=== PATIENT | male | born 1970 | race Caucasian/White ===

== ENCOUNTER 2021-12-21 16:33 | Emergency (ER) | payer OTHER, SELFPAY ==
[2021-12-21] MEDS ORDERED: Boostrix 0.5 ML (Tdap) VIAL ONE (17:21)
[2021-12-21] MEDS ORDERED: Lidocaine 1% (PF) 30 ML VIAL ONE (17:21)
[2021-12-21] MEDS ORDERED: Bacitracin 1 PK ONE ×2 (17:21→18:53)
== END 2021-12-21 19:00 | disposition home or self-care (01) ==
LOC: CSHERS 16:33
DX: S51.811A Laceration without foreign body of right forearm, initial encounter (principal); S40.012A Contusion of left shoulder, initial encounter; V68.5XXA Driver of heavy transport vehicle injured in noncollision transport accident in traffic accident, initial encounter
CPT/HCPCS: 12004; 90471; 90715; J2001